=== PATIENT | female | born 1995 ===

== ENCOUNTER 2017-07-20 15:57 | Emergency (ER) | payer OTHER ==
[2017-07-20 16:20] VITALS: BP 107/68; PULSE 86; RESP 16; TEMP 97.9; O2SAT 100
[2017-07-20] MEDS ORDERED: Tetracaine 0.5% Ophth 2 ML BOTTLE OU ONE (16:24)
[2017-07-20] MEDS ORDERED: Bacitracin 500 Units/gm Oint Foilpak UD TOP ONE (16:24)
[2017-07-20] MEDS ORDERED: Fluorescein 1 mg Ophthalmic Strip OS ONE (16:24)
[2017-07-20] MEDS ORDERED: Fluorescein 1 mg Ophthalmic Strip ONE (16:37)
[2017-07-20] MEDS ORDERED: Bacitracin 500 Units/gm Oint Foilpak UD ONE (16:37)
[2017-07-20] MEDS ORDERED: Tetracaine 0.5% Ophth (OR ONLY) ONE (16:38)
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
== END 2017-07-20 17:01 | disposition home or self-care (01) ==
LOC: C.ER 15:57
DX: S05.01XA Injury of conjunctiva and corneal abrasion without foreign body, right eye, initial encounter (principal); S60.811A Abrasion of right wrist, initial encounter; V49.9XXA Car occupant (driver) (passenger) injured in unspecified traffic accident, initial encounter; Z87.891 Personal history of nicotine dependence

== ENCOUNTER 2017-08-09 11:40 | Emergency (ER) | payer OTHER ==
[2017-08-09 11:58] VITALS: TEMP 97.8
[2017-08-09] MEDS ORDERED: Sodium Chloride 0.9% 1,000 ML IV ONE (12:38)
--- NOTE | 2017-08-09 12:38 | C.PDOC ---
History Of Present Illness 22-YEAR-OLD FEMALE PRESENTS TO THE EMERGENCY DEPARTMENT WITH COMPLAINTS RECUR NVD X 1 WEEK. +LOWER ABD CRAMPING. NO FEVER. PS HAS HAD SIM MULT EPISODES IN 4 MONTHS. NO SICK CONTACTS W SAME. NO WT LOSS EXAM NEG Time Seen by Provider: 08/09/17 12:14 Chief Complaint (Nursing): GI Problem History Per: Patient History/Exam Limitations: no limitations Onset/Duration Of Symptoms: Days Current Symptoms Are (Timing): Still Present Past Medical History Vital Signs: Last Vital Signs Temp 97.8 F 08/09/17 11:54 Pulse 71 08/09/17 11:54 Resp 18 08/09/17 11:54 BP 108/76 08/09/17 11:54 Pulse Ox 98 08/09/17 13:34 - Medical History PMH: Anemia, Depression, Personality Disorder (boarderline) Denies: Diabetes, Hepatitis, HIV, HTN, Chronic Kidney Disease, Seizures, Sexually Transmitted Disease Surgical History: - [facility] Procedures INCIS W REM OF FORIEGN BODY OR DEV FROM SKIN & SUBCUT TISSUE (08/02/14) INDIVIDUAL PSYCHOTHERAPY, SUPPORTIVE (04/09/16) OTHER SKIN & SUBQ I D (05/10/14) Family History: States: Unknown Family Hx - Social History Hx Tobacco Use: Yes ("SOMETIMES") Hx Alcohol Use: No Hx Substance Use: No - Immunization History Hx Tetanus Toxoid Vaccination: No Hx Influenza Vaccination: No Hx Pneumococcal Vaccination: No Review Of Systems Except As Marked, All Systems Reviewed And Found Negative. Constitutional: Negative for: Fever, Chills Cardiovascular: Negative for: Chest Pain Respiratory: Negative for: Cough, Shortness of Breath Gastrointestinal: Positive for: Nausea, Vomiting, Abdominal Pain, Diarrhea Musculoskeletal: Negative for: Back Pain Physical Exam - Physical Exam Appears: Non-toxic, No Acute Distress Skin: Warm, Dry, No Rash Head: Atraumatic, Normacephalic Eye(s): bilateral: Normal Inspection, PERRL Nose: Normal Oral Mucosa: Moist Lips: Normal Appearing Neck: Normal ROM Cardiovascular: Rhythm Regular, No Murmur Respiratory: Normal Breath Sounds, No Accessory Muscle Use Gastrointestinal/Abdominal: Soft, No Tenderness, No Guarding, No Rebound Extremity: Normal ROM Neurological/Psych: Oriented x3, Normal Speech ED Course And Treatment - Laboratory Results Result Diagrams: 08/09/17 12:57 08/09/17 12:57 O2 Sat by Pulse Oximetry: 98 (on RA) Pulse Ox Interpretation: Normal Progress - Re-Evaluation Re-evaluation Note: 08/09/17 13:35 APEPARS COMFORTABLE NAD. LABS WNL. ADVISED POSSIBLE NEED FOR GI FU. - Data Reviewed Data Reviewed: Lab, Old records Disposition Counseled Patient/Family Regarding: Studies Performed, Diagnosis, Need For Followup, Rx Given - Disposition [facility]errals: [facility] [Outside] Disposition: HOME/ ROUTINE Disposition Time: 13:36 Condition: IMPROVED Additional Instructions: FOLLOW UP WITH PMD/GI SPECIIALIST IF RECURRENT SYMPTOMS Prescriptions: Atropine/Diphenoxylate [Lonox 0.025 MG-2.5 MG] 1 tab PO TID PRN #12 tab PRN Reason: Diarrhea Dicyclomine [Bentyl] 20 mg PO TID PRN #12 tab PRN Reason: Pain Instructions: Acute Diarrhea (ED) Forms: [employer] (Polish) - Clinical Impression Clinical Impression: Abdominal pain, Diarrhea - Scribe Statement The provider has reviewed the documentation as recorded by the Scribe (Ashutosh Price) All medical record entries made by the Scribe were at my direction and personally dictated by me. I have reviewed the chart and agree that the record accurately reflects my personal performance of the history, physical exam, medical decision making, and the department course for this patient. I have also personally directed, reviewed, and agree with the discharge instructions and disposition.
[2017-08-09] MEDS ORDERED: Sodium Chloride 0.9% 1,000 ML ONE (12:55)
[2017-08-09 12:59] LABS: BASO % 0.4 % (0.0-2.0); EOS % 0.3 % (0.0-4.0); HEMOGLOBIN 12.2 g/dL (11.0-16.0); LYMPH # 1.3 K/uL (1.0-4.3); LYMPH % 30.8 % (20.0-40.0); MEAN CORPUSCULAR HGB CONC 34.5 g/dL (33.0-37.0); MEAN PLATELET VOLUME 8.6 fL (7.2-11.7); MONO # 0.2 K/uL (0.0-0.8); MONO % 5.7 % (0.0-10.0); NEUT # 2.7 K/uL (1.8-7.0); NEUT % 62.8 % (50.0-75.0); NRBC % 0.1 % (0.0-2.0); RBC 4.06 Mil/uL (3.80-5.20); RED CELL DISTRIBUTION WIDTH 13.1 % (11.5-14.5); WHITE BLOOD COUNT 4.4 K/uL (4.8-10.8)
[2017-08-09 13:12] LABS: BLOOD UREA NITROGEN 10 mg/dL (7-17); CALCIUM 8.7 mg/dl (8.6-10.4); GFR AFRICAN-AMERICAN > 60; GFR NON-AFRICAN AMERICAN > 60
[2017-08-09 13:14] LABS: SQUAMOUS EPITHIAL 2 /hpf (0-5); URINE BILIRUBIN NEGATIVE (NEGATIVE); URINE BLOOD NEGATIVE (NEGATIVE); URINE CLARITY Clear (Clear); URINE COLOR Yellow (YELLOW); URINE GLUCOSE (UA) NORMAL (Normal); URINE LEUKOCYTE ESTERASE NEG Leu/uL (Negative); URINE NITRATE NEGATIVE (NEGATIVE); URINE PROTEIN 1+ mg/dL (NEGATIVE)
[2017-08-09 13:52] VITALS: BP 102/69; PULSE 66; RESP 20; O2SAT 100
== END 2017-08-09 14:19 | disposition home or self-care (01) ==
LOC: C.ER 11:40
DX: R10.30 Lower abdominal pain, unspecified (principal); R19.7 Diarrhea, unspecified
CPT/HCPCS: 80048; 81001; 85025; 96360; 99284; J7040

== ENCOUNTER 2018-11-17 17:33 | Emergency (ER) | payer MEDICAID, OTHER ==
[2018-11-17 17:59] VITALS: BMI 21.4
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
[2018-11-17 20:17] VITALS: BP 102/68; PULSE 64; RESP 16; TEMP 98.1
[2018-11-17 20:27] VITALS: O2SAT 99
== END 2018-11-17 20:22 | disposition home or self-care (01) ==
LOC: C.ER 17:33
DX: R10.13 Epigastric pain (principal); Z72.0 Tobacco use